=== PATIENT | female | born 1975 | race Caucasian/White ===

== ENCOUNTER 2020-07-18 11:06 | Outpatient (REF) | payer OTHER, SELFPAY ==
[2020-07-18 14:10] LABS: Hematocrit 38.5 % (37-47); Hemoglobin 12.5 g/dl (12.0-16.0); Mean Corpuscular HGB Conc 32.5 g/dl (31.0-35.0); Mean Corpuscular Hemoglobin 28.6 pg (27.0-33.0); Mean Corpuscular Volume 88.1 fL (80-98); Mean Platelet Volume 12.5 fL (9.4-12.3); Platelet Count 222 X10*3/uL (160-400); Red Blood Count 4.37 X10*6/uL (4.20-5.50); Red Cell Distribution Width 12.9 % (11.0-16.0); White Blood Count 7.3 X10*3/uL (4.8-10.8)
[2020-07-18 14:42] LABS: Alanine Aminotransferase 16 U/L (0-31); Alkaline Phosphatase 56 U/L (39-117); Anion Gap 12 (12-20); Aspartate Amino Transferase 17 U/L (5-31); Bilirubin Total 0.4 mg/dL (0.0-1.0); Blood Urea Nitrogen 13 mg/dL (9-16); Calcium 8.6 mg/dL (8.4-10.2); Carbon Dioxide 24 mmol/L (22-29); Chloride 107 mmol/L (96-108); Cholesterol 186 mg/dL; Estimated Glomerular Filt Rate > 60; Glucose Fasting 87 mg/dL (60-99); HDL Cholesterol 40 mg/dL; LDL Cholesterol Calculated 127 mg/dl; Potassium 3.9 mmol/l (3.3-5.1); Sodium 139 mmol/L (135-145); Total Protein 6.9 g/dL (6.5-8.0); Triglycerides 98 mg/dL
[2020-07-18 15:01] LABS: TSH reflex Free T4 1.19 mIU/mL (0.32-4.0)
[2020-07-18 15:05] LABS: Thyroid Stimulating Hormone 1.22 mIU/mL (0.32-4.0)
[2020-07-27 14:47] LABS: Vitamin D 25-OH, D2 <4 ng/mL; Vitamin D 25-OH, D3 46 ng/mL; Vitamin D 25-OH, Total 46 ng/mL (30-100)
== END 2020-07-18 11:07 | disposition home or self-care (01) ==
LOC: HO.HMGCLDS 11:06
PROVIDERS: PCP Internal Medicine; Visit Provider Internal Medicine
DX: E04.2 Nontoxic multinodular goiter (principal)
CPT/HCPCS: 36415; 80053; 80061; 82306; 84443; 85027

== ENCOUNTER 2021-07-29 08:41 | Outpatient (REF) | payer OTHER, SELFPAY ==
[2021-07-29 11:43] LABS: Hemoglobin 13.7 g/dl (12.0-16.0); Red Cell Distribution Width 12.7 % (11.0-16.0)
[2021-07-29 11:45] LABS: Hematocrit 41.7 % (37.0-47.0); Mean Corpuscular HGB Conc 32.9 g/dl (31.0-35.0); Mean Corpuscular Hemoglobin 28.7 pg (27.0-33.0); Mean Corpuscular Volume 87.2 fL (80.0-98.0); Mean Platelet Volume 13.5 fL (9.4-12.3); PLT CLUMP 1; Red Blood Count 4.78 X10*6/uL (4.20-5.50)
[2021-07-29 11:47] LABS: PLT ABN DIST 1
[2021-07-29 12:12] LABS: Platelet Count 150 X10*3/uL (160-400); White Blood Count 7.4 X10*3/uL (4.8-10.8)
[2021-07-29 12:22] LABS: Alanine Aminotransferase 16 U/L (0-31); Albumin Level 4.2 g/dL (3.5-5.0); Alkaline Phosphatase 61 U/L (39-117); Anion Gap 13 (12-20); Aspartate Amino Transferase 19 U/L (5-31); Bilirubin Total 0.4 mg/dL (0.0-1.0); Blood Urea Nitrogen 11 mg/dL (9-16); Calcium 8.9 mg/dL (8.4-10.2); Carbon Dioxide 21 mmol/L (22-29); Chloride 108 mmol/L (96-108); Cholesterol 207 mg/dL; Estimated Glomerular Filt Rate > 60; Glucose Fasting 86 mg/dL (60-99); HDL Cholesterol 41 mg/dL; LDL Cholesterol Calculated 133 mg/dl; Potassium 4.8 mmol/L (3.3-5.1); Sodium 137 mmol/L (135-145); Total Protein 7.7 g/dL (6.5-8.0); Triglycerides 166 mg/dL
[2021-07-29 12:42] LABS: TSH reflex Free T4 1.45 uIU/mL (0.32-4.0); Vitamin D 25-OH Total 31.8 ng/mL (>30)
== END 2021-07-29 08:42 | disposition home or self-care (01) ==
LOC: HO.HMGCLDS 08:41
PROVIDERS: PCP Internal Medicine; Visit Provider Internal Medicine
DX: Z00.00 Encounter for general adult medical examination without abnormal findings (principal)
CPT/HCPCS: 36415; 80053; 80061; 82306; 84443; 85027

== ENCOUNTER 2022-08-04 08:45 | Outpatient (REF) | payer BC, SELFPAY ==
[2022-08-04 11:22] LABS: MANUAL DIFF FLAG NO
[2022-08-04 11:30] LABS: Basophils Absolute Auto 0.1 X10*3/uL (0.0-0.2); Basophils Percent Auto 1.1 % (0-2); Eosinophils Absolute Auto 0.3 X10*3/uL (0.0-0.4); Eosinophils Percent Auto 4.1 % (0-4); Hematocrit 40.9 % (37.0-47.0); Hemoglobin 13.3 g/dl (12.0-16.0); Imm Gran Abs Auto 0.01 X10*3/uL (0.00-0.03); Imm Gran Pct Auto 0.1 % (0.0-0.4); Lymphocytes Absolute Auto 2.4 X10*3/uL (1.2-4.9); Lymphocytes Percent Auto 32.4 % (20-40); Mean Corpuscular HGB Conc 32.5 g/dl (31.0-35.0); Mean Corpuscular Hemoglobin 28.2 pg (27.0-33.0); Mean Corpuscular Volume 86.8 fL (80.0-98.0); Mean Platelet Volume 11.7 fL (9.4-12.3); Monocytes Absolute Auto 0.5 X10*3/uL (0.1-1.2); Monocytes Percent Auto 6.1 % (2-11); Neutrophils Absolute Auto 4.1 x10*3/uL (2.0-8.3); Neutrophils Percent Auto 56.2 % (45-73); Platelet Count 258 X10*3/uL (160-400); Red Blood Count 4.71 X10*6/uL (4.20-5.50); Red Cell Distribution Width 12.7 % (11.0-16.0); White Blood Count 7.4 X10*3/uL (4.8-10.8)
[2022-08-04 11:38] LABS: Appearance Urine Clear; Color Urine Yellow; Glucose Urine UA Negative (Negative); Leukocyte Esterase Urine Negative (Negative); Nitrite Urine Negative (Negative); Specific Gravity - Urine 1.015 (1.005-1.025); UMIC TRIGGER UACC YES; Urine Blood Moderate (2+) (Negative); Urine Ketones Negative (Negative); Urine Protein Negative (Neg-Trace)
[2022-08-04 11:45] LABS: Bacteria Urine None Seen (None Seen); Hyaline Casts Urine 0-2 /LPF (0-2); RBC Urine >20 /HPF (0-2); Squamous Epithelial Cell Urine 0-2 /HPF (0-2); WBC Urine 0-5 /HPF (0-5)
[2022-08-04 12:13] LABS: TSH reflex Free T4 1.27 uIU/mL (0.32-4.0); Vitamin D 25-OH Total 37.6 ng/mL (>30)
[2022-08-04 12:16] LABS: Alanine Aminotransferase 19 U/L (0-31); Albumin Level 4.2 g/dL (3.5-5.0); Alkaline Phosphatase 72 U/L (39-117); Anion Gap 15 (12-20); Aspartate Amino Transferase 15 U/L (5-31); Bilirubin Total 0.4 mg/dL (0.0-1.0); Blood Urea Nitrogen 11 mg/dL (9-16); Calcium 8.8 mg/dL (8.4-10.2); Carbon Dioxide 23 mmol/L (22-29); Chloride 106 mmol/L (96-108); Cholesterol 223 mg/dL; Estimated Glomerular Filt Rate > 60; Glucose Fasting 90 mg/dL (60-99); HDL Cholesterol 37 mg/dL; LDL Cholesterol Calculated 145 mg/dl; Sodium 140 mmol/L (135-145); Total Protein 7.3 g/dL (6.5-8.0); Triglycerides 208 mg/dL
== END 2022-08-04 08:46 | disposition home or self-care (01) ==
LOC: HO.HMGCLDS 08:45
PROVIDERS: PCP Internal Medicine; Visit Provider Internal Medicine
DX: Z00.00 Encounter for general adult medical examination without abnormal findings (principal); Z92.89 Personal history of other medical treatment
CPT/HCPCS: 36415; 80053; 80061; 81001; 82306; 84443; 85025

== ENCOUNTER 2022-08-14 09:03 | Outpatient (REF) | payer BC, SELFPAY ==
[2022-08-14 11:26] LABS: Appearance Urine Clear; Color Urine Yellow; Glucose Urine UA Negative (Negative); Leukocyte Esterase Urine Negative (Negative); Nitrite Urine Negative (Negative); PH 6.5 (5.0-9.0); Specific Gravity - Urine <= 1.005 (1.005-1.025); UMIC TRIGGER UACC YES; Urine Blood Small (1+) (Negative); Urine Ketones Negative (Negative); Urine Protein Negative (Neg-Trace)
[2022-08-14 11:44] LABS: Bacteria Urine None Seen (None Seen); Hyaline Casts Urine 0-2 /LPF (0-2); RBC Urine 0-2 /HPF (0-2); Squamous Epithelial Cell Urine 0-2 /HPF (0-2); WBC Urine 0-5 /HPF (0-5)
== END 2022-08-14 09:04 | disposition home or self-care (01) ==
LOC: HO.HMGCLDS 09:03
PROVIDERS: PCP Internal Medicine; Visit Provider Internal Medicine
DX: Z00.00 Encounter for general adult medical examination without abnormal findings (principal); K21.9 Gastro-esophageal reflux disease without esophagitis; Z92.89 Personal history of other medical treatment
CPT/HCPCS: 81001; 87338

== ENCOUNTER 2022-08-20 09:21 | Outpatient (REF) | payer BC, SELFPAY ==
[2022-08-20 11:19] LABS: Urine Cytology See Pathology rpt
[2022-08-20 11:23] LABS: Appearance Urine Clear; Color Urine Yellow; Glucose Urine UA Negative (Negative); Leukocyte Esterase Urine Trace (Negative); Nitrite Urine Negative (Negative); UMIC TRIGGER UACC YES; Urine Blood Moderate (2+) (Negative); Urine Ketones Negative (Negative); Urine Protein Negative (Neg-Trace)
[2022-08-20 11:25] LABS: Bacteria Urine None Seen (None Seen); Hyaline Casts Urine 0-2 /LPF (0-2); Squamous Epithelial Cell Urine 0-2 /HPF (0-2); WBC Urine 0-5 /HPF (0-5)
== END 2022-08-20 09:22 | disposition home or self-care (01) ==
LOC: HO.HMGCLDS 09:21
PROVIDERS: PCP Internal Medicine; Visit Provider Internal Medicine
DX: R31.29 Other microscopic hematuria (principal)
CPT/HCPCS: 81001; 88112

== ENCOUNTER 2022-09-03 15:25 | Outpatient (REF) | payer BC, SELFPAY ==
--- NOTE | ~2022-09-03 | US_ITS ---
EXAMINATION: US RETROPERITONEAL LIMITED (RENAL ONLY) CLINICAL INFORMATION: Microscopic hematuria. COMPARISON: None TECHNIQUE: Routine grayscale imaging of kidneys is performed. FINDINGS: RIGHT KIDNEY: 11.7 x 4.0 x 4.0 cm (SAG x AP x TRV). The kidney is normal in size, contour, and echogenicity. Renal cortical thickness is normal. No calculi or focal parenchymal lesions. No hydronephrosis. LEFT KIDNEY: 10.5 x 6.3 x 4.3 cm (SAG x AP x TRV). The kidney is normal in size, contour, and echogenicity. Renal cortical thickness is normal. No calculi or focal parenchymal lesions. No hydronephrosis. US/US renal BI IMPRESSION: Unremarkable renal ultrasound.
== END 2022-09-03 15:26 | disposition home or self-care (01) ==
LOC: HO.HMGCX 15:25
PROVIDERS: PCP Internal Medicine; Visit Provider Internal Medicine
DX: R31.29 Other microscopic hematuria (principal)
CPT/HCPCS: 76775

== ENCOUNTER → 2022-12-28 14:57 | Outpatient (BNVA) | payer BC, SELFPAY | PROVIDERS: PCP Internal Medicine; Visit Provider Physician Assistant | DX: Z13.89 Encounter for screening for other disorder (principal) ==

== ENCOUNTER 2023-02-12 07:35 | Outpatient (REF) | payer BC, SELFPAY ==
[2023-02-12 11:07] LABS: MANUAL DIFF FLAG NO
[2023-02-12 11:12] LABS: Basophils Absolute Auto 0.1 X10*3/uL (0.0-0.2); Basophils Percent Auto 1.1 % (0-2); Eosinophils Absolute Auto 0.2 X10*3/uL (0.0-0.4); Eosinophils Percent Auto 3.3 % (0-4); Hematocrit 39.8 % (37.0-47.0); Imm Gran Abs Auto 0.01 X10*3/uL (0.00-0.03); Imm Gran Pct Auto 0.2 % (0.0-0.4); Lymphocytes Absolute Auto 2.8 X10*3/uL (1.2-4.9); Lymphocytes Percent Auto 43.9 % (20-40); Mean Corpuscular HGB Conc 32.7 g/dl (31.0-35.0); Mean Corpuscular Hemoglobin 28.3 pg (27.0-33.0); Mean Corpuscular Volume 86.7 fL (80.0-98.0); Mean Platelet Volume 12.7 fL (9.4-12.3); Monocytes Absolute Auto 0.4 X10*3/uL (0.1-1.2); Monocytes Percent Auto 6.1 % (2-11); Neutrophils Absolute Auto 2.9 x10*3/uL (2.0-8.3); Neutrophils Percent Auto 45.4 % (45-73); Platelet Count 246 X10*3/uL (160-400); Red Blood Count 4.59 X10*6/uL (4.20-5.50); Red Cell Distribution Width 13.1 % (11.0-16.0); White Blood Count 6.4 X10*3/uL (4.8-10.8)
[2023-02-12 11:28] LABS: Cholesterol 214 mg/dL; HDL Cholesterol 37 mg/dL; LDL Cholesterol Calculated 141 mg/dl; Triglycerides 182 mg/dL
== END 2023-02-12 07:36 | disposition home or self-care (01) ==
LOC: HO.HMGCLDS 07:35
PROVIDERS: PCP Internal Medicine; Visit Provider Internal Medicine
DX: E78.5 Hyperlipidemia, unspecified (principal)
CPT/HCPCS: 36415; 80061; 85025

== ENCOUNTER 2023-08-08 09:17 | Day surgery (SDC) | payer BC, SELFPAY ==
[2023-08-08 09:46] VITALS: BP 141/84; PULSE 106; RESP 20; TEMP 37.1; O2SAT 100; BMI 28.3
[2023-08-08] MEDS: Lactated Ringers 1,000 ML 50 ML IVCONT (09:49)
--- NOTE | 2023-08-08 10:08 | P.CONAN_ITS ---
[facility] Active Problems Active Problems: All Active Problems (Updated 08/05/23 @ 09:00 by Verito Sanchez RN) Encounter for colonoscopy in patient with family history of colon polyps (Acute) Encounter for screening colonoscopy (Acute) Microscopic hematuria (Acute) Hyperlipidemia (Acute) Chest pain (Acute) Hx of screening mammography (Acute) GERD (gastroesophageal reflux disease) (Acute) Thyroid nodule (Acute) Normal Pap smear (Acute) Annual physical exam (Acute) Past Medical History Medical History (Updated 08/05/23 @ 09:00 by Verito Sanchez RN) GERD (gastroesophageal reflux disease) Thyroid nodule Normal Pap smear Annual physical exam Family History Family History Father HTN (hypertension) Mother HTN (hypertension) Brother Colon polyp Family history of problems with anesthesia: No Surgical History Surgical History No pertinent past surgical history History of Problems with Anesthesia: No Social History Social History Housing: House Patient Tobacco Use Status: Never used Tobacco e-Cigarette/Vaping Use: Never Used Advance Directives: No Advance Directives Information Provided: Yes Current occupational status: employed Cognitive needs: No Hearing needs: No Vision needs: No Meds Allergies Allergy/AdvReac Type Severity Reaction Status Date / Time No Known Allergies Allergy Verified 12/28/22 14:59 Active Medications: Current Medications Lactated Ringer's (Lr) 1,000 mls @ 50 mls/hr IVCONT .Q20H [facility] Last Admin: 08/08/23 09:49 Dose: 50 mls/hr Home Medications Medication Instructions Recorded Confirmed Last Taken Type ascorbate calcium (vitamin C) 500 500 mg PO DAILY 07/18/20 08/04/22 Unknown History mg tablet cholecalciferol (vitamin D3) 25 25 mcg PO DAILY 07/18/20 08/04/22 Unknown History mcg (1,000 unit) capsule ibuprofen 200 mg capsule 200 mg PO Q6H PRN 07/18/20 08/04/22 Unknown History Exam Exam Date and Time: August 08, 2023 1008 Height,Weight and Vital Signs: Height 5 ft 4 in Weight 74.843 kg Last Vital Signs Temp 98.8 F 11/13/23 09:46 Pulse 106 H 08/08/23 09:46 Resp 20 08/08/23 09:46 BP 141/84 H 08/08/23 09:46 Pulse Ox 100 08/08/23 09:46 O2 Del Method Room Air 08/08/23 09:46 Airway Mallampati Class: II TM Dist: >3cm Neck ROM: Full Heart: rrr Lungs: cts Assessment and Plan Assessment Anesthesia Assessment: Anesthesia Plan Discussed and Chart Reviewed Final Anesthetic Review Family History of Problems with Anesthesia: No History of Problems with Anesthesia: No NPO: Yes ASA Class: II Final Preanesthetic Review: No Changes in Pt Med Stat, Meds/Allgs Chart Reviewed and Consent Obtained/Reviewed Patient Risk: Intermediate Procedure Risk: Intermediate Anesthetic Plan Anesthetic Plan: MAC: Disposition: Standard PACU
--- NOTE | 2023-08-08 10:24 | MHC.SHP ---
Pre-Procedural Eval Section A Date of Service: 08/08/23 The patient is an INPATIENT: No The History & Physical has been completed within 30 days and I have reviewed it.: No Section B Chief Complaint: Colon cancer screening, FH of colon polyps Relevant Family History (Specify if Yes): Yes Relevant Social History: None Present Medications: see Short Stay Collaborative assessment Medical History: Significant History (Thyroid nodule) History of Previous Operations: No relevant previous surgery Allergies: Allergies Allergy/AdvReac Type Severity Reaction Status Date / Time No Known Allergies Allergy Verified 12/28/22 14:59 Review of Systems Sugical H&P ROS: Negative: Constitution, Cardiovascular, Respiratory and Gastrointestinal Exam Surgical H&P Exam: Normal: Heart, Normal: Lungs, Normal: Extremities and Normal: Abdomen Plan Diagnosis/Plan: Unchanged I have reviewed the history and physical and performed a pertinent physical examination on my patient. No changes have occurred unless specified. Time Spent With Patient Time: Total time managing care of this patient today ____ minutes.
[2023-08-08 10:44] LABS: UPreg QC Valid YES; Urine Pregnancy NEGATIVE (NEGATIVE)
--- NOTE | 2023-08-08 10:59 | W.PM.OPN ---
Operative Note Operative Note Date of Service: 08/08/23 Narrative: COLONOSCOPY TILL CECUM Pre-op diagnosis: Colon cancer screening, family history of colon polyps (brother at age 48 yrs) Post-op diagnosis:? Diverticulosis Endoscopist:? Lewis Swenson MD Anesthesia:?MAC Consent: Indications for the procedure and potential complications of bleeding, perforation, reaction to medications and missed diagnosis were discussed with the patient and informed consent was obtained. Instrument: Olympus PCF H 190 L variable stiffness pediatric colonoscope Monitoring: Vital signs and clinical assessment, intermittent blood pressure monitoring, continuous EKG monitoring, Pulse oximetry and Carbon Dioxide monitoring were done throughout the procedure. Please see anesthesia flowsheet. Colon withdrawl time was 10 minutes. Procedure: The patient was placed in the left lateral decubitis position and pre-procedure medications were administered. After a digital rectal examination of the ano-rectum, the video colonoscope was inserted into the rectum and advanced through the colon to the cecum. The colonoscope was slowly withdrawn in a retrograde panoramic fashion and the colon mucosa was carefully examined including a retroflexed view of the rectum. Findings and interventions are described below. Procedure Difficulty: Without difficulty - colon was long and tortuous and there was some loop formation Findings: Terminal Ileum: Not evaluated Cecum: Normal Ascending Colon: Normal Transverse Colon: Normal Descending Colon: Normal Sigmoid Colon: Moderate diverticulosis Rectum: Normal Ano-rectum: Normal Colon preparation: Excellent Impression and Post Procedure Diagnosis: Colonoscopy Findings: No polyps were detected Moderate diverticulosis seen in the sigmoid colon Plan: Patient has an appointment on 08/23/23 in the GI Clinic with PAT Garcia. Repeat Colonoscopy in 5 years (due to positive family hx). OK to revert to colonoscopy every 10 years if next colonoscopy is negative Diverticulosis handout was given in the discharge area
[2023-08-08 11:35] VITALS: BP 107/71; PULSE 97; RESP 16; TEMP 36.6; O2SAT 95
[2023-08-08 11:50] VITALS: BP 125/68; PULSE 79; RESP 17; TEMP 36.7; O2SAT 96
== END 2023-08-08 12:42 | disposition home or self-care (01) ==
PROVIDERS: Anesthesiology; PCP Internal Medicine; Visit Provider Internal Medicine Gastroenterology
PROC: 0DJD8ZZ Inspection of Lower Intestinal Tract, Via Natural or Artificial Opening Endoscopic (ICD-10-PCS; CPT 45378; principal; 2023-08-08 11:00)
DX: Z12.11 Encounter for screening for malignant neoplasm of colon (principal); K57.30 Diverticulosis of large intestine without perforation or abscess without bleeding; K56.2 Volvulus; Z83.719 Family history of colon polyps, unspecified; E78.5 Hyperlipidemia, unspecified; K21.9 Gastro-esophageal reflux disease without esophagitis; Z79.899 Other long term (current) drug therapy
CPT/HCPCS: 45378; 81025; J2704

== ENCOUNTER → 2023-08-08 09:17 | Outpatient (BNV) | payer BC, SELFPAY | PROVIDERS: PCP Internal Medicine; Visit Provider Internal Medicine Gastroenterology | DX: Z12.11 Encounter for screening for malignant neoplasm of colon (principal); Z86.010 Personal history of colon polyps; K57.30 Diverticulosis of large intestine without perforation or abscess without bleeding | CPT/HCPCS: 45378 ==

== ENCOUNTER 2023-10-05 08:23 | Outpatient (AMB) | payer BC, SELFPAY ==
[2023-10-05 08:34] VITALS: BP 126/74; PULSE 99; O2SAT 100; BMI 29.2
--- NOTE | 2023-10-05 08:34 | A.OFFPC_ITS ---
Vital Signs 10/05/23 08:34 Height 5 ft 4 in Weight 170 lb BMI 29.2 BP 126/74 Blood Pressure Location Lt brachial Position Sitting Pulse 99 Pulse Source Pulse Oximeter Pulse Oximetry (%) 100 Oxygen Delivery Method Room Air Intake Visit Reasons: Annual PE Intake Note: Pt is here today for PE. 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 Allergies No Known Allergies Allergy (Verified 10/05/23 08:36) Medication List - Last Reconciled 10/05/23 by Alaina Kennedy MD ascorbate calcium (vitamin C) 500 mg PO DAILY cholecalciferol (vitamin D3) 25 mcg PO DAILY ibuprofen 200 mg PO Q6H PRN meclizine 25 mg PO TID PRN omeprazole 20 mg PO DAILY Tobacco use date assessed: 10/05/23 Dental Screening Dental Screen Date: 10/05/23 Did you have a dental visit in the last 12 months?: Yes Did you have a dental problem in the last 6 months where you did not have access to dental care?: No Was dental information given to patient?: Patient has dentist HPI Annual PE HPI Details PATIENT PRESENTS FOR PE. [facility] Medical History GERD (gastroesophageal reflux disease) Thyroid nodule Normal Pap smear Annual physical exam Surgical History (Updated 10/05/23 @ 09:17 by Alaina Kennedy MD) No pertinent past surgical history Family History Father HTN (hypertension) Mother HTN (hypertension) Brother Colon polyp Social History Housing: House Patient Tobacco Use Status: Never used Tobacco e-Cigarette/Vaping Use: Never Used Current occupational status: employed Cognitive needs: No Hearing needs: No Vision needs: No Questionnaire PHQ-9 Over the last 2 weeks, how often have you been bothered by any of the following problems? 1. Little interest or pleasure in doing things: not at all 2. Feeling down, depressed, or hopeless: not at all 3. Trouble falling or staying asleep, or sleeping too much: not at all 4. Feeling tired or having little energy: not at all 5. Poor appetite or overeating: not at all 6. Feeling bad about yourself - or that you are a failure or have let yourself or your family down: not at all 7. Trouble concentrating on things, such as reading the newspaper or watching television: not at all 8. Moving or speaking so slowly that other people could have noticed. Or the opposite - being so fidgety or restless that you have been moving around a lot more than usual: not at all 9. Thoughts that you would be better off or of hurting yourself in some way: not at all Total score: 0 Depression Screening Interpretation: Negative Depression Screening Done: Yes Source: Developed by Drs. Moy Chacon, Debi Shahid, Antonino Rosas and colleagues, with an educational pollo from [employer]. Thrive Questionnaire Date Thrive assessed: 10/05/23 I am a: Patient What is your living situation today?: I have a steady place to live Within the past 12 months, did the food you bought not last and you didn't have the money to get more?: Never true Within the past 12 months, did you worry whether your food would run out before you got money to buy more?: Never true Do you have trouble paying for medicines?: No Do you have trouble getting transportation to medical appointments?: No Do you have trouble paying your heating and electricity bill?: No Do you have trouble taking care of your child, family member or friend?: No Do you have trouble with day-to-day activities such as bathing, preparing meals, shopping, managing finances, etc.?: No Are you currently unemployed and looking for a job?: No Are you interested in more education?: No Please select the resources that you would like help with: Job search/training AUDIT C Alcohol Use Questionnaire (AUDIT-C) 1. How often do you have a drink containing alcohol?: Monthly or less 2. How many drinks containing alcohol do you have on a typical day when you are drinking?: 1 or 2 3. How often do you have six or more drinks on one occasion?: Never Total Score: 1 LINA-7 AMB Questionnaire LINA-7 Date LINA - 7 assessed: 10/05/23 Feeling nervous, anxious, or on edge: 1 = Several days Not being able to stop or control worryin = Not at all Worrying too much about different things: 1 = Several days Trouble relaxin = Not at all Being so restless that it is hard to sit still: 0 = Not at all Becoming easily annoyed or irritable: 0 = Not at all Feeling afraid as if something awful might happen: 1 = Several days Total LINA-7 score (0-4 normal; 5-9 mild; 10-14 moderate; 15-21 severe): 3 Source: Developed by Drs. Moy Chacon, Debi Shahid, Antonino Rosas and colleagues, with an educational pollo from [employer]. Review of Systems Const All systems reviewed & are unremarkable except as noted in HPI and below Reports no additional complaints Eyes Reports no additional complaints ENT Reports no additional complaints Card Reports no additional complaints Resp Reports no additional complaints GI Reports no additional complaints Reports no additional complaints Physical exam (Primary Care) Vital Signs: Last Vital Signs Pulse 99 10/05/23 08:34 BP 126/74 10/05/23 08:34 Pulse Ox 100 10/05/23 08:34 Oxygen Delivery Method Room Air 10/05/23 08:34 BMI result Body Mass Index 29.2 Tobacco/Smoking Status: Tobacco use Status Tobacco use date assessed 10/05/23 10/05/23 08:39 Patient Tobacco Use Status Never used Tobacco 10/05/23 08:39 e-Cigarette/Vaping Use Never Used 10/05/23 08:39 PHQ-9: PHQ-9 Score PHQ-9: Total score 0 10/05/23 09:15 Depression Screening Interpretation: Negative Thrive Assessment: Date of Thrive Assessment Date Thrive assessed 10/05/23 10/05/23 08:39 Const General: no acute distress HENMT Head: Yes normal to inspection Ears: hearing grossly normal bilaterally Face and sinus: Yes normal facial exam Mouth: Normal oral and palatal mucosa present Throat: Yes posterior oropharynx normal Eyes General: appearance normal, both eyes and all related structures Neck Neck: Yes no lymphadenopathy and Yes supple Resp Effort & Inspection: normal respiratory effort Auscultation: clear to auscultation bilaterally Cardio Rhythm: regular rhythm Heart sounds: S1 normal heart sound present and S2 normal heart sound present GI Inspection: Yes normal to inspection Palpation (GI): Soft to palpation Percussion: Yes normal to percussion Auscultation: normal bowel sounds Assessment and Plan Assessment & Plan (1) Thyroid nodule: Comment: f/u endo Dr. Lane, 2 nodules bx negative 2013, Code(s): E04.1 - Nontoxic single thyroid nodule Plan: Obtain a 3 year follow-up thyroid ultrasound (2) Annual physical exam: Code(s): Z00.00 - Encounter for general adult medical examination without abnormal findings Plan: Well-balanced diet regular exercise discussed with the patient she is up-to-date with the Pap smear by photography coordinator and mammogram. (3) Hyperlipidemia: Code(s): E78.5 - Hyperlipidemia, unspecified Plan: Low-cholesterol diet discussed with the patient check lipid profile today (4) Microscopic hematuria: Comment: Renal ultrasound negative 08/17 Code(s): R31.29 - Other microscopic hematuria Plan: Check urinalysis today if positive for microscopic hematuria CT of the abdomen pelvis will be obtained and patient will be referred to urology (5) Hx of colonoscopy: Comment: normal 2022 Code(s): Z98.890 - Other specified postprocedural states (6) Hx of mammogram: Comment: [facility] 2022 Code(s): Z92.89 - Personal history of other medical treatment (7) Normal Pap smear: Comment: follow-up with photography coordinator last Pap 2020 Orders: Orders Comprehensive [place]. Panel Fast Today E04.1 - Nontoxic single thyroid nodule, E78.5 - Hyperlipidemia, unspecified, Z00.00 - Encounter for general adult medical examination without abnormal findings Complete Blood Count Auto Diff Today E04.1 - Nontoxic single thyroid nodule, E78.5 - Hyperlipidemia, unspecified, Z00.00 - Encounter for general adult medical examination without abnormal findings TSH reflex Free T4 Today E04.1 - Nontoxic single thyroid nodule, E78.5 - Hyperlipidemia, unspecified, Z00.00 - Encounter for general adult medical examination without abnormal findings UA w Microscopic Today R31.29 - Other microscopic hematuria US thyroid Today E04.1 - Nontoxic single thyroid nodule, E78.5 - Hyperlipidemia, unspecified, Z00.00 - Encounter for general adult medical examination without abnormal findings Lipid Panel Today E04.1 - Nontoxic single thyroid nodule, E78.5 - Hyperlipidemia, unspecified, Z00.00 - Encounter for general adult medical examination without abnormal findings Vitamin D 25-OH Total Today E04.1 - Nontoxic single thyroid nodule, E78.5 - Hyperlipidemia, unspecified, Z00.00 - Encounter for general adult medical examination without abnormal findings Coding Level of Care Code Est Pt Prev Care 40-64y(88860) Diagnoses Thyroid nodule E04.1 Annual physical exam Z00.00 Hyperlipidemia E78.5 Microscopic hematuria R31.29 Hx of colonoscopy Z98.890 Hx of mammogram Z92.89 Normal Pap smear Z12.4
== END 2023-10-05 09:20 | disposition home or self-care (01) ==
PROVIDERS: PCP Internal Medicine; Visit Provider Internal Medicine
DX: E04.1 Nontoxic single thyroid nodule (principal); Z00.00 Encounter for general adult medical examination without abnormal findings; E78.5 Hyperlipidemia, unspecified; R31.29 Other microscopic hematuria; Z98.890 Other specified postprocedural states; Z92.89 Personal history of other medical treatment; Z12.4 Encounter for screening for malignant neoplasm of cervix
CPT/HCPCS: 99396

== ENCOUNTER 2023-10-05 09:12 | Outpatient (REF) | payer BC, SELFPAY ==
[2023-10-05 11:34] LABS: MANUAL DIFF FLAG NO
[2023-10-05 11:36] LABS: Appearance Urine Clear; Color Urine Yellow; Glucose Urine UA Negative (Negative); Leukocyte Esterase Urine Trace (Negative); Nitrite Urine Negative (Negative); UMIC TRIGGER UA YES; Urine Blood Moderate (2+) (Negative); Urine Ketones Negative (Negative); Urine Protein Negative (Neg-Trace)
[2023-10-05 11:43] LABS: Basophils Absolute Auto 0.1 X10*3/uL (0.0-0.2); Basophils Percent Auto 0.8 % (0-2); Eosinophils Absolute Auto 0.3 X10*3/uL (0.0-0.4); Eosinophils Percent Auto 2.8 % (0-4); Hematocrit 40.7 % (37.0-47.0); Hemoglobin 13.1 g/dl (12.0-16.0); Imm Gran Abs Auto 0.02 X10*3/uL (0.00-0.03); Imm Gran Pct Auto 0.2 % (0.0-0.4); Lymphocytes Absolute Auto 3.8 X10*3/uL (1.2-4.9); Lymphocytes Percent Auto 38.8 % (20-40); Mean Corpuscular HGB Conc 32.2 g/dl (31.0-35.0); Mean Corpuscular Hemoglobin 28.2 pg (27.0-33.0); Mean Corpuscular Volume 87.5 fL (80.0-98.0); Mean Platelet Volume 12.2 fL (9.4-12.3); Monocytes Absolute Auto 0.6 X10*3/uL (0.1-1.2); Monocytes Percent Auto 5.9 % (2-11); Neutrophils Percent Auto 51.5 % (45-73); Platelet Count 287 X10*3/uL (160-400); Red Blood Count 4.65 X10*6/uL (4.20-5.50); Red Cell Distribution Width 13.2 % (11.0-16.0); White Blood Count 9.7 X10*3/uL (4.8-10.8)
[2023-10-05 12:12] LABS: Bacteria Urine 2+ (None Seen); Hyaline Casts Urine 0-2 /LPF (0-2); WBC Urine 0-5 /HPF (0-5)
[2023-10-05 12:19] LABS: Alanine Aminotransferase 18 U/L (0-31); Albumin Level 4.1 g/dL (3.5-5.0); Alkaline Phosphatase 65 U/L (39-117); Anion Gap 12 (12-20); Aspartate Amino Transferase 15 U/L (5-31); Bilirubin Total 0.4 mg/dL (0.0-1.0); Blood Urea Nitrogen 11 mg/dL (9-16); Carbon Dioxide 23 mmol/L (22-29); Chloride 108 mmol/L (96-108); Cholesterol 219 mg/dL (<200); Estimated Glomerular Filt Rate > 60; Glucose Fasting 90 mg/dL (60-99); HDL Cholesterol 39 mg/dL (>40); LDL Cholesterol Calculated 138 mg/dL (<100); Potassium 3.7 mmol/L (3.3-5.1); Sodium 139 mmol/L (135-145); Total Protein 7.5 g/dL (6.5-8.0); Triglycerides 211 mg/dL (<150)
[2023-10-05 12:20] LABS: TSH reflex Free T4 1.72 uIU/mL (0.32-4.0); Vitamin D 25-OH Total 66.8 ng/mL (>30)
== END 2023-10-05 09:13 | disposition home or self-care (01) ==
LOC: HO.HMGCLDS 09:12
PROVIDERS: PCP Internal Medicine; Visit Provider Internal Medicine
DX: Z00.00 Encounter for general adult medical examination without abnormal findings (principal); E04.1 Nontoxic single thyroid nodule; R31.29 Other microscopic hematuria; E78.5 Hyperlipidemia, unspecified
CPT/HCPCS: 36415; 80053; 80061; 81001; 82306; 84443; 85025

== ENCOUNTER 2023-12-06 16:02 | Outpatient (REF) | payer BC, SELFPAY ==
--- NOTE | ~2023-12-06 | CT_ITS ---
EXAMINATION: CT UROGRAM WITHOUT AND WITH CONTRAST CLINICAL INFORMATION: Reason for Exam R31.29 - Other microscopic hematuria COMPARISON: 09/03/2022 TECHNIQUE: Helical scanning was performed with collimation through the abdomen and pelvis precontrast. Helical scanning was then repeated with submillimeter collimation through the abdomen and pelvis in the pyelogram phase with use of 100 mL of Omnipaque 300 intravenous contrast. Sagittal and coronal 2-D reconstructions were obtained. Multiple additional 3-D volume rendered images were obtained of the kidneys and collecting systems on an independent workstation under concurrent supervision. This CT examination was performed using dose optimization techniques as appropriate, variously including the following: *Automated exposure control *Adjustment of mA and/or kV according to patient size (this includes techniques or standardized protocols for targeted exams where dose is matched to indication/reason for exam; i.e. extremities or head) *Use of iterative reconstruction technique DLP: 699.55 mGy-cm FINDINGS: LUNG BASES: Unremarkable. ABDOMINAL AND PELVIC WALL: Unremarkable. LIVER AND BILIARY TREE: Unremarkable. GALLBLADDER: Unremarkable. PANCREAS: Unremarkable. SPLEEN: Partially evaluated 2.3 x 1.7 cm cystic structure arising from the spleen (9:48) with internal calcifications. ADRENAL GLANDS: Unremarkable. KIDNEYS AND URETERS: The kidneys are normal in size, shape, and attenuation. No hydronephrosis, hydroureter, or calculi seen. No perinephric stranding. No obvious mass lesion or filling defect is seen in the collecting systems or ureters. GASTROINTESTINAL TRACT: Unremarkable. VASCULAR: Unremarkable. LYMPH NODES/PERITONEUM: No lymphadenopathy. FREE FLUID: None. BLADDER: Unremarkable. PELVIC VISCERA: Left adnexal 2.4 x 1.4 cm cyst. OSSEOUS STRUCTURES: Unremarkable. CT/CT abdomen pelvis wo/w IV con IMPRESSION: * No hydronephrosis or nephrolithiasis. * Partially evaluated 2.3 cm cystic structure arising from the spleen with internal calcifications. Recommend further evaluation with CT or MRI. * Left adnexal 2.4 cm cyst. Recommend pelvic ultrasound for further evaluation.
[2023-12-06] MEDS: iohexoL 350 MG/ML 100 ML INFUS..BTL 85 ML IV (16:36)
== END 2023-12-06 16:03 | disposition home or self-care (01) ==
LOC: HO.CT 16:02
PROVIDERS: PCP Internal Medicine; Visit Provider Internal Medicine
DX: R31.29 Other microscopic hematuria (principal)
CPT/HCPCS: 74178; Q9967

== ENCOUNTER 2023-12-09 15:28 | Outpatient (AMB) | payer BC, SELFPAY ==
--- NOTE | 2023-12-09 15:33 | A.OFFVIS_ITS ---
Intake Intake Visit Reasons: Other microscopic hematuria Intake Note: New Patient presents for initial visit for micro hematuria Urology Medications: none Blood Thinner: none [employer] Consultant Required: No Accompanied by: Self / Same As Patient Allergies No Known Allergies Allergy (Verified 12/09/23 16:07) Medication List - Last Reconciled 12/09/23 by TYRON Wayne cholecalciferol (vitamin D3) 25 mcg PO DAILY ibuprofen 200 mg PO Q6H PRN HPI HPI Comments History of Present Illness Details Aspen is a very pleasant 48-year-old patient of Dr. Kennedy. She has a past medical history of GERD and a thyroid nodule. She presents to the office today as a new patient for microscopic hematuria. In discussion with the patient today she reports having followed up with her PCP for her annual visit at which time she was noted to have microscopic hematuria and be recommendations were made for urology referral for further assessment evaluation. In review of patient's chart it appears CT of the abdomen and pelvis was ordered and performed. These results were reviewed with the patient today no hydronephrosis or renal calculi noted. Discussed continuing to follow up with front desk associate regarding adnexal 2.4 cm left cyst that is recommending pelvic ultrasound for further assessment evaluation. Discussed following up with PCP regarding 2.3 cm cystic structure arising from spleen with calcifications. She reports noting microscopic hematuria was found in 2019 however then subsided without any intervention. Discussed at length potential causes of microscopic hematuria. She denies any bothersome urinary issues or concerns. She denies urinary urgency, urinary frequency, incontinence, nocturia, hematuria, dysuria, foul smelling urine, changes to urinary stream, flank pain, fever, and or chills. She is happy with her current voiding parameters. In office urinalysis results reviewed with the patient today. Discussed further workup of microscopic hematuria versus surveillance monitoring. She has no history of nicotine dependence and or known workplace chemical exposure. She otherwise offers no other issues or concerns at this time. [facility] Medical History GERD (gastroesophageal reflux disease) Thyroid nodule Normal Pap smear Annual physical exam Surgical History No pertinent past surgical history Family History Father HTN (hypertension) Mother HTN (hypertension) Brother Colon polyp Social History Housing: House Patient Tobacco Use Status: Never used Tobacco e-Cigarette/Vaping Use: Never Used Current occupational status: employed Cognitive needs: No Hearing needs: No Vision needs: No Review of Systems Const All systems reviewed & are unremarkable except as noted in HPI and below Results AMB Urinalysis, Automated UA Leukoctes 0 Ganga/uL Last Edit by [employer] Monetsharlene on 12/09/23 16:06 UA Nitrite Negative Last Edit by Jajahsharlene on 12/09/23 16:06 UA Urobilinogen 0.2 mg/dL Last Edit by [employer] on 12/09/23 16:06 UA Protein 0 mg/dL Last Edit by Jajahsharlene on 12/09/23 16:06 UA pH 7.0 Last Edit by [employer] on 12/09/23 16:06 UA Blood 200 Kenneth/uL Last Edit by Jajahsharlene on 12/09/23 16:06 UA Specific [place] 1.010 Last Edit by Jajahsharlene on 12/09/23 16:06 UA Ketone Negative Last Edit by [employer] on 12/09/23 16:06 UA Bilirubin 0 mg/dL Last Edit by [employer] on 12/09/23 16:06 UA Glucose 0 mg/dL Last Edit by Jajahsharlene on 12/09/23 16:06 Results Reviewed Results Reviewed: Laboratory Last Values Urine pH (Auto) 7.0 12/09/23 15:36 Specific [place] (Auto) 1.010 12/09/23 15:36 Urine Protein (Auto) 0 mg/dL 12/09/23 15:36 Glucose (UA)(Auto) 0 mg/dL 12/09/23 15:36 Urine Ketones (Auto) Negative 12/09/23 15:36 Urine Blood (Auto) 200 Kenneth/uL 12/09/23 15:36 Urine Nitrite (Auto) Negative 12/09/23 15:36 Urine Bilirubin (Auto) 0 mg/dL 12/09/23 15:36 Urine Urobilinogen (Auto) 0.2 mg/dL 12/09/23 15:36 Leukocyte Esterase (Auto) 0 Ganga/uL 12/09/23 15:36 Date of Service: 12/06/23 EXAMINATION: CT UROGRAM WITHOUT AND WITH CONTRAST FINDINGS: LUNG BASES: Unremarkable. ABDOMINAL AND PELVIC WALL: Unremarkable. LIVER AND BILIARY TREE: Unremarkable. GALLBLADDER: Unremarkable. PANCREAS: Unremarkable. SPLEEN: Partially evaluated 2.3 x 1.7 cm cystic structure arising from the spleen (9:48) with internal calcifications. ADRENAL GLANDS: Unremarkable. KIDNEYS AND URETERS: The kidneys are normal in size, shape, and attenuation. No hydronephrosis, hydroureter, or calculi seen. No perinephric stranding. No obvious mass lesion or filling defect is seen in the collecting systems or ureters. GASTROINTESTINAL TRACT: Unremarkable. VASCULAR: Unremarkable. LYMPH NODES/PERITONEUM: No lymphadenopathy. FREE FLUID: None. BLADDER: Unremarkable. PELVIC VISCERA: Left adnexal 2.4 x 1.4 cm cyst. OSSEOUS STRUCTURES: Unremarkable. IMPRESSION: * No hydronephrosis or nephrolithiasis. * Partially evaluated 2.3 cm cystic structure arising from the spleen with internal calcifications. Recommend further evaluation with CT or MRI. * Left adnexal 2.4 cm cyst. Recommend pelvic ultrasound for further evaluation. Assessment & Plan Assessment & Plan (1) Microscopic hematuria: Comment: Renal ultrasound negative 08/17 Code(s): R31.29 - Other microscopic hematuria Plan In office urinalysis results reviewed with the patient today; as noted above; will send for urine cytology. Recent CT results reviewed with the patient today; as noted above. Discussed at length potential causes of microscopic hematuria discussed further microscopic hematuria with in office cystoscopy and cytology given CT urogram has been ordered and performed versus surveillance monitoring; risks and benefits of these interventions were discussed at length. Discussed, educated, and stressed the importance of drinking plenty of water daily. Discussed bladder triggers/irritants. Follow-up in 6 months; or sooner with any issues, concerns, and or questions. Orders: Orders AMB Urinalysis Automated 12/09/23 Z13.9 - Encounter for screening, unspecified Urine Cytology 12/09/23 R31.29 - Other microscopic hematuria Patient Instructions: The patient had an opportunity to ask questions regarding the treatment plan. All questions were answered. Physical exam, labs, and imaging were discussed and reviewed in detail. As well as risks, benefits, and discussion of treatment choices. No major barriers to understanding were identified. The patient expressed understanding and agreement with the above treatment plan. The patient was made aware they should contact our office by phone for worsening of their current condition, the appearance of new symptoms, or with any questions or concerns. Compliance is encouraged with any medications and follow up testing that is ordered. It is a privilege to be allowed the opportunity to participate in? your urological care.? Again, if you have any questions or concerns If you have any questions or concerns please do not hesitate to contact me. The office is [phone]. This note is constructed using voice recognition software. While every effort has been made to ensure accuracy emergency telecommunications dispatcher errors may have been included. Yours sincerely, TYRON Wayne Coding Level of Care Code New Pt Level 3 (26123) Diagnoses Microscopic hematuria R31.29
== END 2023-12-09 16:11 | disposition home or self-care (01) ==
PROVIDERS: PCP Internal Medicine; Visit Provider Nurse Practitioner Family
DX: R31.29 Other microscopic hematuria (principal)
CPT/HCPCS: 99203

== ENCOUNTER 2023-12-09 15:28 | Outpatient (REF) | payer BC, SELFPAY ==
[2023-12-09 16:53] LABS: Urine Cytology See Pathology rpt
== END 2023-12-09 15:29 | disposition home or self-care (01) ==
LOC: HO.LNP 15:28
PROVIDERS: PCP Internal Medicine; Visit Provider Nurse Practitioner Family
DX: R31.29 Other microscopic hematuria (principal)
CPT/HCPCS: 81003; 88112

== ENCOUNTER 2023-12-30 14:26 | Outpatient (REF) | payer BC, SELFPAY ==
--- NOTE | ~2023-12-30 | US_ITS ---
EXAMINATION: US PELVIS CLINICAL INFORMATION: Ovarian cyst. COMPARISON: CT abdomen and pelvis 12/06/2023: Left adnexal 2.4 cm cyst. Recommend pelvic ultrasound for further evaluation. TECHNIQUE: Ultrasound of the pelvis is performed using both transabdominal and transvaginal transducers along with Doppler. Transvaginal imaging is performed due to inadequate visualization transabdominally. FINDINGS: Uterus: The uterus is anteverted and measures 6.9 x 4.1 x 5.4 cm. The double wall endometrial thickness is 5 mm. The uterus is smooth in contour and has normal myometrial echogenicity with the exception of a single echogenic focus at the fundus measuring under 2 mm in size which may be a tiny area of calcification or vascular artifact as no calcium was seen on the 12/06/2023 CT scan. No visible fibroid. Adnexa: Both ovaries are visualized. There is normal color flow to the adnexa. There is no ovarian torsion. There is no pelvic ascites or fluid collection. Right ovary measures 2.4 x 1.1 x 2.3 cm for a volume of 3.2 mL. Left ovary measures 3.2 x 1.8 x 2.9 cm for a volume of 8.3 mL which includes multiple benign simple cysts the largest measuring 0.9 cm in greatest dimension. US/US pelvic and transvaginal IMPRESSION: Benign left ovarian cysts. No follow-up is needed.
--- NOTE | ~2023-12-30 | US_ITS ---
EXAMINATION: US THYROID CLINICAL INFORMATION: Nontoxic single thyroid nodule. COMPARISON: Thyroid ultrasound 06/08/2018, report only. TECHNIQUE: Linear transducer grayscale and color Doppler examination with attention to the region of the thyroid. FINDINGS: SIZE: Measurements of the thyroid lobes and nodules are given in sagittal, anteroposterior and transverse dimensions respectively. Right Thyroid Lobe: 5.16 x 2.15 x 1.32 cm, volume 7.68 mL. Parenchyma: The gland echotexture is homogeneous. Thyroid vascularity is normal. Left Thyroid Lobe: 5.80 x 2.27 x 1.87 cm, volume 12.9 mL. Parenchyma: The gland echotexture is homogeneous. Thyroid vascularity is normal. Isthmus: 0.29 cm in maximum AP dimension. Estimated total number of nodules greater than or equal to 1 cm: 2. 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 Location: Right inferior. Size: 0.77 x 0.36 x 0.70 cm, volume 0.10 mL. Nodule characteristics: Composition: Spongiform (0). Echogenicity: Anechoic (0). Shape: Not taller than wide (0). Margins: Smooth (0). Echogenic Foci: None (0). ACR TI-RADS total points: 0 ACR TI-RADS category: 1 2. Location: Right inferior. Size: 1.4 x 1.3 x 1.35 cm, volume 1.3 mL. Nodule characteristics: Composition: Cystic(0). ACR TI-RADS total points: 0 ACR TI-RADS category: 1 3. Location: Left inferior. Size: 3.8 x 2.2 x 2.8 cm, volume 12.5 mL. In 2018 this measured 2.6 x 1.6 x 2.2 cm and is significantly larger. Nodule characteristics: Composition: Solid/almost completely solid (2). Echogenicity: Hypoechoic (2). Shape: Not taller than wide (0). Margins: Smooth (0). Echogenic Foci: Macrocalcifications (1). ACR TI-RADS total points: 5 ACR TI-RADS category: 4 NODES: No lymphadenopathy is seen in the tissue surrounding the thyroid gland. US/US thyroid IMPRESSION: 3.8 cm left inferior TI-RADS class 4 nodule. Biopsy is recommended if this has not already been performed, however, I believe that biopsy may have been performed in the past. Please correlate with the patient's medical records. ACR TI-RADS RECOMMENDATION REFERENCE: Ultrasound-guided fine-needle aspiration, followup ultrasound, no further follow up. * TR1 (0 point) and TR2 (2 points): No FNA or follow up. * TR3 (3 points): FNA if more than or equal to 2.5 cm in maximum dimension, followup ultrasound in 1, 3 and 5 years if 1.5 to 2.4 cm in maximum dimension. * TR4 (4-6 points): FNA if more than or equal to 1.5 cm in maximum dimension, followup ultrasound in 1, 2, 3 and 5 years if 1 to 1.4 cm in maximum dimension. * TR5 (more than or equal to 7 points): FNA if more than or equal to 1 cm in maximum dimension, followup ultrasound every year for 5 years if 0.5 to 0.9 cm in maximum dimension. * TR3, TR4 or TR5 nodules that are below the size threshold for followup receive no follow up.
== END 2023-12-30 14:27 | disposition home or self-care (01) ==
LOC: HO.HMGCX 14:26
PROVIDERS: PCP Internal Medicine; Visit Provider Internal Medicine
DX: N83.209 Unspecified ovarian cyst, unspecified side (principal); E04.1 Nontoxic single thyroid nodule; E78.5 Hyperlipidemia, unspecified
CPT/HCPCS: 76536; 76830; 76856

== ENCOUNTER 2024-01-12 16:47 | Outpatient (REF) | payer BC, SELFPAY ==
--- NOTE | ~2024-01-12 | MR_ITS ---
EXAMINATION: MR ABDOMEN WITHOUT AND WITH CONTRAST CLINICAL INFORMATION: Prior abnormal imaging. COMPARISON: CT abdomen/pelvis 12/06/2023 TECHNIQUE: MR abdomen was performed without and with use of 9 mL intravenous Gadavist gadolinium contrast. Postcontrast images are performed in multiphase dynamic sequences. Imaging was performed in 3 planes. MRCP was also performed. FINDINGS: LUNG BASES: The visualized lung bases are unremarkable. LIVER, GALLBLADDER, AND BILIARY TREE: Hepatic steatosis. No suspicious hepatic lesion or biliary ductal dilatation is present. The gallbladder is unremarkable with no evidence of gallbladder wall thickening, or obvious pericholecystic inflammatory changes. PANCREAS: Normal contour. Homogeneous enhancement. No ductal dilatation. No peripancreatic stranding. MRCP images are of limited diagnostic utility. SPLEEN: Not enlarged. Cystic nonenhancing lesion at the splenic hilum measures 2.2 x 1.5 x 1.6 cm. ADRENAL GLANDS: No adrenal mass. KIDNEYS AND URETERS: The kidneys are normal in size, shape, and enhance symmetrically. No hydronephrosis. No perinephric stranding. GASTROINTESTINAL TRACT: No bowel obstruction. No ascites or fluid collection. ABDOMINAL WALL: No significant hernia is appreciated. LYMPH NODES: No bulky lymphadenopathy. VASCULAR: Normal caliber abdominal aorta. MR/MR abdomen wo/w con IMPRESSION: Hepatic steatosis. Nonenhancing cystic lesion at the splenic hilum measuring 2.2 x 1.5 x 1.6 cm. This may be a sequela of prior inflammation or infection.
[2024-01-12] MEDS: gadobutroL 10 ML VIAL IVPUSH (17:50)
== END 2024-01-12 16:48 | disposition home or self-care (01) ==
LOC: HO.MRI 16:47
PROVIDERS: PCP Internal Medicine; Visit Provider Internal Medicine
DX: K86.89 Other specified diseases of pancreas (principal)
CPT/HCPCS: 74183; A9585

== ENCOUNTER 2024-06-08 13:01 | Outpatient (AMB) | payer BC, SELFPAY ==
[2024-06-08 13:13] VITALS: BP 120/74; PULSE 80; O2SAT 100; BMI 28.7
--- NOTE | 2024-06-08 13:13 | A.OFFPC_ITS ---
Vital Signs 06/08/24 13:13 Height 5 ft 4 in Weight 167 lb BMI 28.7 BP 120/74 Blood Pressure Location Rt brachial Position Sitting Pulse 80 Pulse Source Pulse Oximeter Pulse Oximetry (%) 100 Oxygen Delivery Method Room Air Intake Visit Reasons: pneumonia Intake Note: Pt is here today for a follow up after having pneumonia. Pt states that she finished antibiotics. Pt would like referral for PT as she has been having pain in her shoulders. Pt also states that she has been having R hand numbness and tingiling. Allergies No Known Allergies Allergy (Verified 06/08/24 13:18) Medication List - Last Reconciled 06/08/24 by Alaina Kennedy MD cholecalciferol (vitamin D3) 25 mcg PO DAILY ibuprofen 200 mg PO Q6H PRN Tobacco use date assessed: 06/08/24 Dental Screening Dental Screen Date: 06/08/24 Did you have a dental visit in the last 12 months?: Yes Did you have a dental problem in the last 6 months where you did not have access to dental care?: No Was dental information given to patient?: Patient has dentist HPI pneumonia HPI Details Pt is for f/u pneumonia dxd in Urgent Care 3 weeks ago. Patient took Augmentin and Z-Jorge and reports feeling well. Patient complains of chronic right shoulder, pain worse when reaching overhead or behind the back. She had an episode of 4th and 5th finger tingling sensation after working in the garden which resolved completely. She denies any weakness in the hand elevator supervisor. 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 [facility] Medical History GERD (gastroesophageal reflux disease) Thyroid nodule Normal Pap smear Annual physical exam Surgical History No pertinent past surgical history Family History Father HTN (hypertension) Mother HTN (hypertension) Brother Colon polyp Social History Housing: House Patient Tobacco Use Status: Never used Tobacco e-Cigarette/Vaping Use: Never Used service: No Current occupational status: employed Cognitive needs: No Hearing needs: No Vision needs: No Questionnaire PHQ-9 Over the last 2 weeks, how often have you been bothered by any of the following problems? 1. Little interest or pleasure in doing things: not at all 2. Feeling down, depressed, or hopeless: not at all 3. Trouble falling or staying asleep, or sleeping too much: not at all 4. Feeling tired or having little energy: not at all 5. Poor appetite or overeating: not at all 6. Feeling bad about yourself - or that you are a failure or have let yourself or your family down: not at all 7. Trouble concentrating on things, such as reading the newspaper or watching television: not at all 8. Moving or speaking so slowly that other people could have noticed. Or the opposite - being so fidgety or restless that you have been moving around a lot more than usual: not at all 9. Thoughts that you would be better off or of hurting yourself in some way: not at all Total score: 0 Depression Screening Interpretation: Negative Depression Screening Done: Yes 04300 - PHQ-9 Billing: Yes Source: Developed by Drs. Moy Chacon, Debi Shahid, Antonino Rosas and colleagues, with an educational pollo from [employer]. Thrive Questionnaire Date Thrive assessed: 10/05/23 I am a: Patient What is your living situation today?: I have a steady place to live Within the past 12 months, did the food you bought not last and you didn't have the money to get more?: Never true Within the past 12 months, did you worry whether your food would run out before you got money to buy more?: Never true Do you have trouble paying for medicines?: No Do you have trouble getting transportation to medical appointments?: No Do you have trouble paying your heating and electricity bill?: No Do you have trouble taking care of your child, family member or friend?: No Do you have trouble with day-to-day activities such as bathing, preparing meals, shopping, managing finances, etc.?: No Are you currently unemployed and looking for a job?: No Are you interested in more education?: Yes Please select the resources that you would like help with: None Currently or been in a relationship where the following occur: No concerns reported THRIVE Score: 0 AUDIT C Alcohol Use Questionnaire (AUDIT-C) 1. How often do you have a drink containing alcohol?: Monthly or less 2. How many drinks containing alcohol do you have on a typical day when you are drinking?: 1 or 2 3. How often do you have six or more drinks on one occasion?: Never Total Score: 1 LINA-7 AMB Questionnaire LINA-7 Date LINA - 7 assessed: 06/08/24 Feeling nervous, anxious, or on edge: 0 = Not at all Not being able to stop or control worryin = Not at all Worrying too much about different things: 1 = Several days Trouble relaxin = Not at all Being so restless that it is hard to sit still: 0 = Not at all Becoming easily annoyed or irritable: 0 = Not at all Feeling afraid as if something awful might happen: 1 = Several days Total LINA-7 score (0-4 normal; 5-9 mild; 10-14 moderate; 15-21 severe): 2 Source: Developed by Drs. Moy Chacon, Debi Shahid, Antonino Rosas and colleagues, with an educational pollo from [employer]. Review of Systems Const All systems reviewed & are unremarkable except as noted in HPI and below Eyes Reports no additional complaints ENT Reports no additional complaints Card Reports no additional complaints Resp Reports no additional complaints GI Reports no additional complaints Reports no additional complaints Physical exam (Primary Care) Vital Signs: Last Vital Signs Pulse 80 06/08/24 13:13 BP 120/74 06/08/24 13:13 Pulse Ox 100 06/08/24 13:13 Oxygen Delivery Method Room Air 06/08/24 13:13 BMI result Body Mass Index 28.7 Tobacco/Smoking Status: Tobacco use Status Tobacco use date assessed 06/08/24 06/08/24 13:21 Patient Tobacco Use Status Never used Tobacco 06/08/24 13:21 e-Cigarette/Vaping Use Never Used 06/08/24 13:14 PHQ-9: PHQ-9 Score PHQ-9: Total score 0 06/08/24 13:21 Depression Screening Interpretation: Negative Thrive Assessment: Date of Thrive Assessment Date Thrive assessed 10/05/23 06/08/24 13:14 Currently or been in a relationship where the following occur: No concerns reported Const General: no acute distress HENMT Head: Yes normal to inspection Face and sinus: Yes normal facial exam Neck Neck: Yes supple Resp Effort & Inspection: normal respiratory effort Auscultation: clear to auscultation bilaterally Cardio Rhythm: regular rhythm Heart sounds: S1 normal heart sound present and S2 normal heart sound present GI Inspection: Yes normal to inspection Extrem Other: There is a slight decreased range of motion right shoulder no weakness in upper extremities deep tendon reflexes 2+ bilaterally Assessment and Plan Assessment & Plan (1) Pneumonia: Code(s): J18.9 - Pneumonia, unspecified organism Plan: Repeat chest x-ray (2) Shoulder pain, right: Code(s): M25.511 - Pain in right shoulder Plan: Patient will schedule an appointment with physical therapy Orders: Orders XR chest 2V Today J18.9 - Pneumonia, unspecified organism Coding Level of Care Code Est Pt Level 3 (12211) Diagnoses Pneumonia J18.9 Shoulder pain, right M25.511
== END 2024-06-08 14:56 | disposition home or self-care (01) ==
PROVIDERS: PCP Internal Medicine; Visit Provider Internal Medicine
DX: J18.9 Pneumonia, unspecified organism (principal); M25.511 Pain in right shoulder
CPT/HCPCS: 99213

== ENCOUNTER 2024-06-08 13:54 | Outpatient (REF) | payer BC, SELFPAY ==
--- NOTE | ~2024-06-08 | XR_ITS ---
EXAMINATION: XR CHEST 2 VIEWS CLINICAL INFORMATION: Pneumonia. COMPARISON: None. TECHNIQUE: Frontal and lateral views of the chest were obtained. FINDINGS: The heart, great vessels, pulmonary vasculature and mediastinum are normal. The lungs show no focal infiltrate, effusion or pneumothorax. There is biapical pleural thickening. There is no acute osseous abnormality. There is multi-level thoracic spondylosis. XR/XR chest 2V IMPRESSION: No active cardiopulmonary disease. Electronically signed by: Del Hickey MD 07/23/2024 11:43 AM EDT
== END 2024-06-08 13:55 | disposition home or self-care (01) ==
LOC: HO.HMGCX 13:54
PROVIDERS: PCP Internal Medicine; Visit Provider Internal Medicine
DX: J18.9 Pneumonia, unspecified organism (principal)
CPT/HCPCS: 71046

== ENCOUNTER 2024-07-24 16:00 | Outpatient (AMB) | payer BC, SELFPAY ==
--- NOTE | 2024-07-24 16:01 | MHC.OFFVIS ---
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 Kennedy. She has a past medical history of GERD and a thyroid nodule. She presents to the office today for follow-up of her microscopic hematuria. Of note, patient was seen approximately 6 months ago at which time she underwent CT urogram and urine cytology for microscopic hematuria. CT 12/17 noted no hydronephrosis or renal calculi noted. Discussed continuing to follow up with customer service representative teller regarding adnexal 2.4 cm left cyst that is recommending pelvic ultrasound for further assessment evaluation. Discussed following up with PCP regarding 2.3 cm cystic structure arising from spleen with calcifications. She reports noting microscopic hematuria was found in 2019 however then subsided without any intervention. Discussed at length potential causes of microscopic hematuria. Cytology 12/17 Negative for high-grade urothelial carcinoma. She denies any bothersome urinary issues or concerns. She denies urinary urgency, urinary frequency, incontinence, nocturia, hematuria, dysuria, foul smelling urine, changes to urinary stream, flank pain, fever, and or chills. She is happy with her current voiding parameters. In office urinalysis results reviewed with the patient today. Discussed further workup of microscopic hematuria to include in office cystoscopy. I discussed reasons for blood in the urine may include but are not limited to kidney stones, cancer in the urinary tract, kidney stone disease or inflammatory conditions of the urinary tract. I have discussed workup to include cystoscopy evaluation versus surveillance monitoring. She also reports she continues to menstruate and has recently finished her menses. She has no history of nicotine dependence and or known workplace chemical exposure. She otherwise offers no other issues or concerns at this time. [facility] Medical History GERD (gastroesophageal reflux disease) Thyroid nodule Normal Pap smear Annual physical exam Surgical History No pertinent past surgical history Family History Father HTN (hypertension) Mother HTN (hypertension) Brother Colon polyp Social History Housing: House Patient Tobacco Use Status: Never used Tobacco e-Cigarette/Vaping Use: Never Used service: No Current occupational status: employed Cognitive needs: No Hearing needs: No Vision needs: No Review of Systems Const All systems reviewed & are unremarkable except as noted in HPI and below Physical Exam Const General: cooperative, healthy appearing, comfortable, no acute distress, well developed, alert and awake Orientation/consciousness: patient oriented x3 Limitations: no limitations HEENT Head: Yes normal to inspection, Yes normocephalic and Yes atraumatic Ears: hearing grossly normal bilaterally Eyes General: appearance normal, both eyes and all related structures Neck Neck: Yes normal visual inspection and Yes trachea midline Chest Chest palpation & inspection: normal inspection of the chest Resp Effort & Inspection: normal respiratory effort and able to speak in complete sentences Cardio Rate: regular rate GI Inspection: Yes normal to inspection General: Yes no CVA tenderness Back/Spine/Pelvis Back: no CVA tenderness Skin General skin exam: no rashes or lesions noted Neuro General: patient oriented x3 Extrem General: Yes normal to inspection Psych Appearance: grossly normal and well kempt Mental Status: mental status grossly normal Speech and movement: Normal speech and movement present and Clear speech present Affect: normal affect Attitude: cooperative Thought process: Normal thought process present Thought content: Normal thought content present Insight: Fair insight present (Psych) Judgement: Fair judgement present (Psych) Results AMB Urinalysis, Automated UA Leukoctes 0 Ganga/uL Last Edit by [employer] on 07/24/24 16:27 UA Nitrite Last Edit by [employer] on 07/24/24 16:27 UA Urobilinogen 0.2 mg/dL Last Edit by Malauzai [employer]estefany [employer] on 07/24/24 16:27 UA Protein 0 mg/dL Last Edit by Malauzai Softwareestefany He[employer] on 07/24/24 16:27 UA pH 6.0 Last Edit by [employer] Monet[employer] on 07/24/24 16:27 UA Blood 200 Kenneth/uL Last Edit by Corinne Mendoza on 07/24/24 16:27 UA Specific [place] 1.030 Last Edit by Corinne Mendoza on 07/24/24 16:27 UA Ketone Negative Last Edit by Corinne Mendoza on 07/24/24 16:27 UA Bilirubin 0 mg/dL Last Edit by Corinne Mendoza on 07/24/24 16:27 UA Glucose 0 mg/dL Last Edit by Corinne Mendoza on 07/24/24 16:27 Results Reviewed Results Reviewed: Laboratory Last Values Urine pH (Auto) 6.0 07/24/24 16:25 Specific [place] (Auto) 1.030 07/24/24 16:25 Urine Protein (Auto) 0 mg/dL 07/24/24 16:25 Glucose (UA)(Auto) 0 mg/dL 07/24/24 16:25 Urine Ketones (Auto) Negative 07/24/24 16:25 Urine Blood (Auto) 200 Kenneth/uL 07/24/24 16:25 Urine Bilirubin (Auto) 0 mg/dL 07/24/24 16:25 Urine Urobilinogen (Auto) 0.2 mg/dL 07/24/24 16:25 Leukocyte Esterase (Auto) 0 Ganga/uL 07/24/24 16:25 Assessment & Plan Assessment & Plan (1) Microscopic hematuria: Comment: Renal ultrasound negative 08/17 Code(s): R31.29 - Other microscopic hematuria Category: Medical Plan In office urinalysis results reviewed with the patient today; as noted above; will send for urine cytology. We discussed at length potential causes of microscopic hematuria as well as further workup to include in office cystoscopy; risks and benefits of these interventions were discussed. She denies any bothersome urinary issues or concerns. She reports be happy with current voiding parameters. Previous urine cytology results reviewed with the patient today; as noted above. Will continue with surveillance monitoring at this time per patient request. Follow-up in 6 months; or sooner with any issues, concerns, and or questions. Orders: Orders AMB Urinalysis Automated Today Z13.9 - Encounter for screening, unspecified Urine Cytology Today R31.29 - Other microscopic hematuria Patient Instructions: The patient had an opportunity to ask questions regarding the treatment plan. All questions were answered. Physical exam, labs, and imaging were discussed and reviewed in detail. As well as risks, benefits, and discussion of treatment choices. No major barriers to understanding were identified. The patient expressed understanding and agreement with the above treatment plan. The patient was made aware they should contact our office by phone for worsening of their current condition, the appearance of new symptoms, or with any questions or concerns. Compliance is encouraged with any medications and follow up testing that is ordered. It is a privilege to be allowed the opportunity to participate in? your urological care.? Again, if you have any questions or concerns If you have any questions or concerns please do not hesitate to contact me. The office is [phone]. This note is constructed using voice recognition software. While every effort has been made to ensure accuracy scouring machine tender errors may have been included. Yours sincerely, TYRON Wayne Coding Level of Care Code Est Pt Level 3 (05373) Diagnoses Microscopic hematuria R31.29
== END 2024-07-24 16:36 | disposition home or self-care (01) ==
LOC: HO.HUSH 16:01
PROVIDERS: PCP Internal Medicine; Visit Provider Nurse Practitioner Family
DX: Z13.9 Encounter for screening, unspecified (principal); R31.29 Other microscopic hematuria
CPT/HCPCS: 99213

== ENCOUNTER 2024-07-24 16:00 | Outpatient (REF) | payer BC, SELFPAY ==
[2024-07-24 17:15] LABS: Urine Cytology See Pathology rpt
== END 2024-07-24 16:01 | disposition home or self-care (01) ==
LOC: HO.LNP 16:00
PROVIDERS: PCP Internal Medicine; Visit Provider Nurse Practitioner Family
DX: R31.29 Other microscopic hematuria (principal)
CPT/HCPCS: 81003; 88112

== ENCOUNTER 2024-10-18 08:29 | Outpatient (REF) | payer BC, SELFPAY ==
[2024-10-18 10:13] LABS: MANUAL DIFF FLAG NO
[2024-10-18 10:25] LABS: Basophils Absolute Auto 0.1 X10*3/uL (0.0-0.2); Basophils Percent Auto 1.1 % (0-2); Eosinophils Absolute Auto 0.3 X10*3/uL (0.0-0.4); Eosinophils Percent Auto 4.5 % (0-4); Hematocrit 39.7 % (37.0-47.0); Hemoglobin 13.1 g/dl (12.0-16.0); Imm Gran Abs Auto 0.01 X10*3/uL (0.00-0.03); Imm Gran Pct Auto 0.1 % (0.0-0.4); Lymphocytes Absolute Auto 2.6 X10*3/uL (1.2-4.9); Lymphocytes Percent Auto 35.8 % (20-40); Mean Corpuscular Hemoglobin 28.4 pg (27.0-33.0); Mean Corpuscular Volume 86.1 fL (80.0-98.0); Mean Platelet Volume 11.9 fL (9.4-12.3); Monocytes Absolute Auto 0.4 X10*3/uL (0.1-1.2); Monocytes Percent Auto 5.9 % (2-11); Neutrophils Absolute Auto 3.8 x10*3/uL (2.0-8.3); Neutrophils Percent Auto 52.6 % (45-73); Platelet Count 241 X10*3/uL (160-400); Red Blood Count 4.61 X10*6/uL (4.20-5.50); Red Cell Distribution Width 12.9 % (11.0-16.0); White Blood Count 7.2 X10*3/uL (4.8-10.8)
[2024-10-18 10:47] LABS: Rheumatoid Factor < 13.0 IU/mL (<15.0)
[2024-10-18 10:57] LABS: Erythrocyte Sedimentation Rate 8 MM/HR (0-20)
[2024-10-18 11:05] LABS: Appearance Urine Clear; Color Urine Yellow; Glucose Urine UA Negative (Negative); Leukocyte Esterase Urine Negative (Negative); Nitrite Urine Negative (Negative); Specific Gravity - Urine 1.025 (1.005-1.025); UMIC TRIGGER UA YES; Urine Blood Large (3+) (Negative); Urine Ketones Negative (Negative); Urine Protein Negative (Neg-Trace)
[2024-10-18 11:10] LABS: Alanine Aminotransferase 23 U/L (0-31); Alkaline Phosphatase 70 U/L (39-117); Anion Gap 9 (12-20); Aspartate Amino Transferase 19 U/L (5-31); Bilirubin Total 0.5 mg/dL (0.0-1.0); Blood Urea Nitrogen 13 mg/dL (9-16); Carbon Dioxide 26 mmol/L (22-29); Chloride 109 mmol/L (96-108); Cholesterol 205 mg/dL (<200); Estimated Glomerular Filt Rate > 60; Glucose Fasting 89 mg/dL (60-99); HDL Cholesterol 44 mg/dL (>40); LDL Cholesterol Calculated 132 mg/dL (<100); Potassium 3.7 mmol/L (3.3-5.1); Sodium 140 mmol/L (135-145); TSH reflex Free T4 1.17 uIU/mL (0.32-4.0); Total Protein 7.4 g/dL (6.5-8.0); Triglycerides 148 mg/dL (<150); Vitamin D 25-OH Total 45.1 ng/mL (>30)
[2024-10-18 11:12] LABS: Bacteria Urine None Seen (None Seen); Hyaline Casts Urine 0-2 /LPF (0-2); RBC Urine >20 /HPF (0-2); WBC Urine 0-5 /HPF (0-5)
[2024-10-18 11:21] LABS: Folate 11.5 ng/mL (> or = 4.0); Vitamin B12 406 pg/mL (200-900)
[2024-10-22 14:39] LABS: Cyclic Citrullinated Peptide <16 UNITS
== END 2024-10-18 08:30 | disposition home or self-care (01) ==
LOC: HO.HMGCLDS 08:29
PROVIDERS: PCP Internal Medicine; Visit Provider Internal Medicine
DX: Z00.00 Encounter for general adult medical examination without abnormal findings (principal); E78.5 Hyperlipidemia, unspecified; E55.9 Vitamin D deficiency, unspecified; E04.1 Nontoxic single thyroid nodule
CPT/HCPCS: 36415; 80053; 80061; 81001; 82306; 82607; 82746; 84443; 85025; 85652; 86200; 86431; 96127

== ENCOUNTER 2024-10-18 08:29 | Outpatient (AMB) | payer BC, SELFPAY ==
[2024-10-18 08:32] VITALS: BP 112/76; PULSE 90; TEMP 37; O2SAT 99; BMI 28.7
--- NOTE | 2024-10-18 08:32 | A.OFFPC_ITS ---
Vital Signs 10/18/24 08:32 Height 5 ft 4 in Weight 167 lb BMI 28.7 BP 112/76 Blood Pressure Location Lt brachial Position Sitting Pulse 90 Pulse Source Pulse Oximeter Temp 98.6 F Temp Source Oral Pulse Oximetry (%) 99 Oxygen Delivery Method Room Air Intake Visit Reasons: Annual PE Intake Note: Pt is here today for PE. Allergies No Known Allergies Allergy (Verified 10/18/24 08:43) Medication List - Last Reconciled 10/18/24 by Alaina Kennedy MD cholecalciferol (vitamin D3) 25 mcg PO DAILY ibuprofen 200 mg PO Q6H PRN Tobacco use date assessed: 10/18/24 Dental Screening Dental Screen Date: 10/18/24 Did you have a dental visit in the last 12 months?: Yes Did you have a dental problem in the last 6 months where you did not have access to dental care?: No Was dental information given to patient?: Patient has dentist HPI Annual PE HPI Details Patient presents for physical. She complains of chronic bilateral shoulder discomfort and stiffness. She completed physical therapy with significant improvement but has not been exercising regularly. [facility] Medical History (Updated 10/18/24 @ 09:15 by Alaina Kennedy MD) GERD (gastroesophageal reflux disease) Thyroid nodule Normal Pap smear Annual physical exam Surgical History (Updated 10/18/24 @ 09:16 by Alaina Kennedy MD) No pertinent past surgical history Family History Father HTN (hypertension) Mother HTN (hypertension) Brother Colon polyp Social History Housing: House Patient Tobacco Use Status: Never used Tobacco e-Cigarette/Vaping Use: Never Used service: No Current occupational status: employed Cognitive needs: No Hearing needs: No Vision needs: No Questionnaire PHQ-9 Over the last 2 weeks, how often have you been bothered by any of the following problems? 1. Little interest or pleasure in doing things: not at all 2. Feeling down, depressed, or hopeless: not at all 3. Trouble falling or staying asleep, or sleeping too much: not at all 4. Feeling tired or having little energy: not at all 5. Poor appetite or overeating: not at all 6. Feeling bad about yourself - or that you are a failure or have let yourself or your family down: not at all 7. Trouble concentrating on things, such as reading the newspaper or watching television: not at all 8. Moving or speaking so slowly that other people could have noticed. Or the opposite - being so fidgety or restless that you have been moving around a lot more than usual: not at all 9. Thoughts that you would be better off or of hurting yourself in some way: not at all Total score: 0 Depression Screening Interpretation: Negative Depression Screening Done: Yes 89140 - PHQ-9 Billing: Yes Source: Developed by Drs. Moy Chacon, Debi Shahid, Antonino Rosas and colleagues, with an educational pollo from [employer]. Thrive Questionnaire Date Thrive assessed: 10/16/24 I am a: Patient What is your living situation today?: I have a steady place to live Within the past 12 months, did the food you bought not last and you didn't have the money to get more?: Never true Within the past 12 months, did you worry whether your food would run out before you got money to buy more?: Never true Do you have trouble paying for medicines?: No Do you have trouble getting transportation to medical appointments?: No Do you have trouble paying your heating and electricity bill?: No Do you have trouble taking care of your child, family member or friend?: No Do you have trouble with day-to-day activities such as bathing, preparing meals, shopping, managing finances, etc.?: No Are you currently unemployed and looking for a job?: No Are you interested in more education?: Yes Please select the resources that you would like help with: None Currently or been in a relationship where the following occur: No concerns reported THRIVE Score: 0 AUDIT C Alcohol Use Questionnaire (AUDIT-C) 1. How often do you have a drink containing alcohol?: Monthly or less 2. How many drinks containing alcohol do you have on a typical day when you are drinking?: 1 or 2 3. How often do you have six or more drinks on one occasion?: Never Total Score: 1 LINA-7 AMB Questionnaire LINA-7 Date LINA - 7 assessed: 10/18/24 Feeling nervous, anxious, or on edge: 0 = Not at all Not being able to stop or control worryin = Not at all Worrying too much about different things: 1 = Several days Trouble relaxin = Not at all Being so restless that it is hard to sit still: 0 = Not at all Becoming easily annoyed or irritable: 0 = Not at all Feeling afraid as if something awful might happen: 0 = Not at all Total LINA-7 score (0-4 normal; 5-9 mild; 10-14 moderate; 15-21 severe): 1 Source: Developed by Drs. Moy Chacon, Debi Shahid, Antonino Rosas and colleagues, with an educational pollo from [employer]. LINA-7 Assessment Billing LINA-7 Assessment Tool: LINA-7 Assessment 08693 Review of Systems Const All systems reviewed & are unremarkable except as noted in HPI and below Eyes Reports no additional complaints ENT Reports no additional complaints Card Reports no additional complaints Resp Reports no additional complaints GI Reports no additional complaints Reports no additional complaints Physical exam (Primary Care) Vital Signs: Last Vital Signs Temp 98.6 F 10/18/24 08:32 Pulse 90 10/18/24 08:32 BP 112/76 10/18/24 08:32 Pulse Ox 99 10/18/24 08:32 Oxygen Delivery Method Room Air 10/18/24 08:32 BMI result Body Mass Index 28.7 Tobacco/Smoking Status: Tobacco use Status Tobacco use date assessed 10/18/24 10/18/24 08:37 Patient Tobacco Use Status Never used Tobacco 10/18/24 08:37 e-Cigarette/Vaping Use Never Used 10/18/24 08:32 PHQ-9: PHQ-9 Score PHQ-9: Total score 0 10/18/24 08:37 Depression Screening Interpretation: Negative Thrive Assessment: Date of Thrive Assessment Date Thrive assessed 10/16/24 10/18/24 08:32 Currently or been in a relationship where the following occur: No concerns reported Const General: no acute distress HENMT Head: Yes normal to inspection Ears: hearing grossly normal bilaterally Face and sinus: Yes normal facial exam Eyes General: appearance normal, both eyes and all related structures Resp Effort & Inspection: normal respiratory effort Auscultation: clear to auscultation bilaterally Cardio Rhythm: regular rhythm Heart sounds: S1 normal heart sound present and S2 normal heart sound present GI Inspection: Yes normal to inspection Palpation (GI): Soft to palpation Percussion: Yes normal to percussion Auscultation: normal bowel sounds Extrem Other: Both shoulders with full range of motion no joint or muscle tenderness Coding Level of Care Code Est Pt Prev Care 40-64y(57878) Diagnoses Hyperlipidemia E78.5 Annual physical exam Z00.00 Vitamin D deficiency E55.9 Thyroid nodule E04.1 Normal Pap smear Z12.4 Hx of colonoscopy Z98.890 Additional Codes LINA-7 Assessment Billing - LINA-7 Assessment Tool: LINA-7 Assessment 48086 ([id number]) PHQ-9 - 39006 - PHQ-9 Billing: Yes ([id number]) Assessment & Plan Assessment & Plan (1) Hyperlipidemia: Code(s): E78.5 - Hyperlipidemia, unspecified Category: Medical Plan: Low-cholesterol diet increase physical activity discussed with the patient check blood work today (2) Annual physical exam: Code(s): Z00.00 - Encounter for general adult medical examination without abnormal findings Category: Medical Plan: Well-balanced diet regular physical activity discussed with the patient she is up-to-date with the mammogram Pap smear by inspector fuel hose and had negative colonoscopy in 2022 (3) Vitamin D deficiency: Code(s): E55.9 - Vitamin D deficiency, unspecified Category: Medical Plan: Check vitamin-D (4) Thyroid nodule: Comment: f/u endo Dr. Lane, 2 nodules bx negative 2013, thyroid US 12/2023 3.8x 2.2x2.8 cm L inf, and 1.4x1.3 cm R inf nodules Code(s): E04.1 - Nontoxic single thyroid nodule Category: Medical Plan: Repeat thyroid ultrasound in December (5) Normal Pap smear: Comment: follow-up with inspector fuel hose Category: Medical Plan: Follow-up with inspector fuel hose (6) Hx of colonoscopy: Comment: normal 2022, FHx of colon polyps brother Code(s): Z98.890 - Other specified postprocedural states Category: Surgical Plan: Repeat colonoscopy in 5 years Orders: Orders Complete Blood Count Auto Diff Today E78.5 - Hyperlipidemia, unspecified, Z00.00 - Encounter for general adult medical examination without abnormal findings Lipid Panel Today E78.5 - Hyperlipidemia, unspecified, Z00.00 - Encounter for general adult medical examination without abnormal findings Vitamin B12 and Folate Today E78.5 - Hyperlipidemia, unspecified, Z00.00 - Encounter for general adult medical examination without abnormal findings Erythrocyte Sedimentation Rate Today E78.5 - Hyperlipidemia, unspecified, Z00.00 - Encounter for general adult medical examination without abnormal findings Rheumatoid Factor Today E78.5 - Hyperlipidemia, unspecified, Z00.00 - Encounter for general adult medical examination without abnormal findings UA w Microscopic Today E78.5 - Hyperlipidemia, unspecified, Z00.00 - Encounter for general adult medical examination without abnormal findings Complete Blood Count Auto Diff 1 Year Z00.00 - Encounter for general adult medical examination without abnormal findings Lipid Panel 1 Year Z00.00 - Encounter for general adult medical examination without abnormal findings Comprehensive [place]. Panel Fast 1 Year Z00.00 - Encounter for general adult medical examination without abnormal findings TSH reflex Free T4 1 Year Z00.00 - Encounter for general adult medical examination without abnormal findings Comprehensive [place]. Panel Fast Today E78.5 - Hyperlipidemia, unspecified, Z00.00 - Encounter for general adult medical examination without abnormal findings Cyclic Citrullinated Peptide Today E78.5 - Hyperlipidemia, unspecified, Z00.00 - Encounter for general adult medical examination without abnormal findings Vitamin D 25-OH Total Today E55.9 - Vitamin D deficiency, unspecified TSH reflex Free T4 Today E04.1 - Nontoxic single thyroid nodule US thyroid 01/08/25 E04.1 - Nontoxic single thyroid nodule
== END 2024-10-18 09:16 | disposition home or self-care (01) ==
PROVIDERS: PCP Internal Medicine; Visit Provider Internal Medicine
DX: E78.5 Hyperlipidemia, unspecified (principal); Z00.00 Encounter for general adult medical examination without abnormal findings; E55.9 Vitamin D deficiency, unspecified; E04.1 Nontoxic single thyroid nodule; Z12.4 Encounter for screening for malignant neoplasm of cervix; Z98.890 Other specified postprocedural states

== ENCOUNTER 2024-10-27 08:35 | Outpatient (REF) | payer BC, SELFPAY ==
[2024-10-27 11:15] LABS: Urine Cytology See Pathology rpt
[2024-10-27 11:33] LABS: Appearance Urine Clear; Color Urine Yellow; Glucose Urine UA Negative (Negative); Leukocyte Esterase Urine Negative (Negative); Nitrite Urine Negative (Negative); Specific Gravity - Urine 1.015 (1.005-1.025); UMIC TRIGGER UA YES; Urine Blood Large (3+) (Negative); Urine Ketones Negative (Negative); Urine Protein Negative (Neg-Trace)
[2024-10-27 11:44] LABS: Bacteria Urine None Seen (None Seen); Hyaline Casts Urine 0-2 /LPF (0-2); RBC Urine >20 /HPF (0-2); Squamous Epithelial Cell Urine 0-2 /HPF (0-2); WBC Urine 0-5 /HPF (0-5)
== END 2024-10-27 08:36 | disposition home or self-care (01) ==
LOC: HO.HMGCLDS 08:35
PROVIDERS: PCP Internal Medicine; Visit Provider Internal Medicine
DX: R31.29 Other microscopic hematuria (principal)
CPT/HCPCS: 81001; 87086; 88112

== ENCOUNTER 2025-01-24 15:54 | Outpatient (AMB) | payer BC, SELFPAY ==
--- NOTE | 2025-01-24 16:08 | A.OFFVIS_ITS ---
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 Kennedy. She has a past medical history of GERD and a thyroid nodule. She presents to the office today for follow-up of her microscopic hematuria. In discussion with the patient today she reports to be doing and feeling well. She denies having had any bothersome urinary issues or concerns since her last office visit here. Previous workup for microscopic hematuria has included CT 12/17 noted no hydronephrosis or renal calculi noted. She reports noting microscopic hematuria was found in 2018 however then subsided without any intervention. Discussed at length potential causes of microscopic hematuria. Cytology 08/17, 12/17, 07/19 and 11/20 Negative for high-grade urothelial carcinoma. She denies any bothersome urinary issues or concerns. She denies urinary urgency, urinary frequency, incontinence, nocturia, hematuria, dysuria, foul smelling urine, changes to urinary stream, flank pain, fever, and or chills. She is happy with her current voiding parameters. In office urinalysis results reviewed with the patient today. Discussed further workup of microscopic hematuria to include cystoscopy. I discussed reasons for blood in the urine may include but are not limited to kidney stones, cancer in the urinary tract, kidney stone disease or inflammatory conditions of the urinary tract. I have discussed workup to include cystoscopy evaluation versus surveillance monitoring. She has no history of nicotine dependence and or known workplace chemical exposure. She otherwise offers no other issues or concerns at this time. [facility] Medical History GERD (gastroesophageal reflux disease) Thyroid nodule Normal Pap smear Annual physical exam Surgical History No pertinent past surgical history Family History Father HTN (hypertension) Mother HTN (hypertension) Brother Colon polyp Social History Housing: House Patient Tobacco Use Status: Never used Tobacco e-Cigarette/Vaping Use: Never Used service: No Current occupational status: employed Cognitive needs: No Hearing needs: No Vision needs: No Review of Systems Const All systems reviewed & are unremarkable except as noted in HPI and below Physical Exam Const General: cooperative, healthy appearing, comfortable, no acute distress, well developed, alert and awake Orientation/consciousness: patient oriented x3 Limitations: no limitations HEENT Head: Yes normal to inspection, Yes normocephalic and Yes atraumatic Ears: hearing grossly normal bilaterally Eyes General: appearance normal, both eyes and all related structures Neck Neck: Yes normal visual inspection and Yes trachea midline Chest Chest palpation & inspection: normal inspection of the chest Resp Effort & Inspection: normal respiratory effort and able to speak in complete sentences Cardio Rate: regular rate GI Inspection: Yes normal to inspection General: Yes no CVA tenderness Back/Spine/Pelvis Back: no CVA tenderness Skin General skin exam: no rashes or lesions noted Neuro General: patient oriented x3 Extrem General: Yes normal to inspection Psych Appearance: grossly normal and well kempt Mental Status: mental status grossly normal Speech and movement: Normal speech and movement present and Clear speech present Affect: normal affect Attitude: cooperative Thought process: Normal thought process present Thought content: Normal thought content present Insight: Fair insight present (Psych) Judgement: Fair judgement present (Psych) Results AMB Urinalysis, Automated UA Leukoctes 0 Ganga/uL Last Edit by Raissa Guillory on 01/24/25 16:10 UA Nitrite Last Edit by Raissa Guillory on 01/24/25 16:10 UA Urobilinogen 0.2 mg/dL Last Edit by Raissa Guillory on 01/24/25 16:10 UA Protein 0 mg/dL Last Edit by Raissa Guillory on 01/24/25 16:10 UA pH 6.0 Last Edit by Raissa Guillory on 01/24/25 16:10 UA Blood 80 Kenneth/uL Last Edit by Raissa Guillory on 01/24/25 16:10 UA Specific [place] 1.010 Last Edit by Raissa Guillory on 01/24/25 16:10 UA Ketone Negative Last Edit by Raissa Guillory on 01/24/25 16:10 UA Bilirubin 0 mg/dL Last Edit by Raissa Guillory on 01/24/25 16:10 UA Glucose 0 mg/dL Last Edit by Raissa Guillory on 01/24/25 16:10 Results Reviewed Results Reviewed: Laboratory Last Values Urine pH (Auto) 6.0 01/24/25 15:56 Specific [place] (Auto) 1.010 01/24/25 15:56 Urine Protein (Auto) 0 mg/dL 01/24/25 15:56 Glucose (UA)(Auto) 0 mg/dL 01/24/25 15:56 Urine Ketones (Auto) Negative 01/24/25 15:56 Urine Blood (Auto) 80 Kenneth/uL 01/24/25 15:56 Urine Bilirubin (Auto) 0 mg/dL 01/24/25 15:56 Urine Urobilinogen (Auto) 0.2 mg/dL 01/24/25 15:56 Leukocyte Esterase (Auto) 0 Ganga/uL 01/24/25 15:56 Assessment & Plan Assessment & Plan (1) Microscopic hematuria: Comment: Renal ultrasound and urine cytology negative 08/17, follow-up with urology Code(s): R31.29 - Other microscopic hematuria Category: Medical Plan In office urinalysis results reviewed with the patient today; as noted above; will send for urine cytology. We reviewed previous urine cytology as well as imaging that has been ordered and performed previously. We reviewed potential causes of microscopic hematuria as well as further workup to include cystoscopy. She currently denies any bothersome urinary issues or concerns. She reports to be happy with current voiding parameters. Will continue with surveillance monitoring. Follow-up in 6 months; or sooner with any issues, concerns, and or questions. Orders: Orders AMB Urinalysis Automated Today Z13.9 - Encounter for screening, unspecified Urine Cytology Today R31.29 - Other microscopic hematuria Coding Level of Care Code Est Pt Level 3 (73954) Diagnoses Microscopic hematuria R31.29
== END 2025-01-24 16:23 | disposition home or self-care (01) ==
LOC: HO.HUSH 15:55
PROVIDERS: PCP Internal Medicine; Visit Provider Nurse Practitioner Family
DX: Z13.9 Encounter for screening, unspecified (principal); R31.29 Other microscopic hematuria
CPT/HCPCS: 99213

== ENCOUNTER 2025-01-24 15:54 | Outpatient (REF) | payer BC, SELFPAY ==
[2025-01-24 16:40] LABS: Urine Cytology See Pathology rpt
== END 2025-01-24 15:55 | disposition home or self-care (01) ==
LOC: HO.LNP 15:54
PROVIDERS: PCP Internal Medicine; Visit Provider Nurse Practitioner Family
DX: R31.29 Other microscopic hematuria (principal)
CPT/HCPCS: 81003; 88112

== ENCOUNTER 2025-09-24 10:31 | Outpatient (REF) | payer BC, SELFPAY ==
--- NOTE | ~2025-09-24 | US_ITS ---
EXAMINATION: US THYROID HISTORY: E04.1 - Nontoxic single thyroid nodule TECHNIQUE: Real-time grayscale ultrasound imaging was performed and images were reviewed. COMPARISON: Comparison is made with the prior examination dated 12/30/2023. FINDINGS: SIZE: The right thyroid lobe measures 4.8 x 2.0 x 1.3 cm. The left thyroid lobe measures 5.5 x 3.1 x 2.2 cm. The isthmus measures 4 mm. FLOW: Flow to the gland is normal. ECHOGENICITY: The echotexture of the gland is homogeneous. NODULES: Multiple nodules are again noted as described below: Nodule #: 1 Location: Midportion of the right thyroid lobe measuring 10 x 5 x 9 mm (previously 8 x 4 x 7 mm). Shape: Wider than tall (0 points) Margins: Smooth (0 points) Echotexture: n/a Composition: Spongiform (0 points) Calcifications: None (0 points) Total points: 0 TIRADS: TR1: Benign Nodule #: 2 Location: Lower pole of the right thyroid lobe measuring 7 x 5 x 6 mm (previously 1.4 x 6 1.3 x 1.4 cm). Shape: Wider than tall (0 points) Margins: Smooth (0 points) Echotexture: Hypoechoic (2 points) Composition: Solid (2 points) Calcifications: None (0 points) Total points: 4 TIRADS: TR4: Moderately suspicious. Nodule #: 3 Location: Lower pole of the left thyroid lobe measuring 3.2 x 2.4 x 2.8 cm (previously 3.8 x 2.2 x 2.8 cm). Shape: Wider than tall (0 points) Margins: Smooth (0 points) Echotexture: Hypoechoic (2 points) Composition: Mostly solid (2 points) Calcifications: Punctate calcifications (3 points) Total points: 7 TIRADS: TR5: Highly suspicious. US/US thyroid IMPRESSION: Highly suspicious nodule at the lower pole of the left thyroid lobe which now demonstrates punctate calcifications, which is a change from the prior study. Ultrasound-guided fine-needle aspiration is recommended. ACR TI-RADS Guidelines TR1 (0 points): Benign. No follow-up or biopsy required TR2 (2 points): Not Suspicious. No biopsy or follow up indicated TR3 (3 points): Mildly Suspicious. FNA if >= 2.5 cm, Follow if >= 1.5 cm TR4 (4-6 points): Moderately Suspicious. FNA if >= 1.5 cm, Follow if >= 1.0 cm TR5 (>=7 points): Highly Suspicious. FNA if >= 1.0 cm, Follow if >= 0.5 cm Electronically signed by: Moy Kilpatrick MD 09/24/2025 11:23 AM [facility] [place]
== END 2025-09-24 10:32 | disposition home or self-care (01) ==
LOC: HO.HMGCX 10:31
PROVIDERS: PCP Internal Medicine; Visit Provider Internal Medicine
DX: E04.1 Nontoxic single thyroid nodule (principal)
CPT/HCPCS: 76536

== ENCOUNTER → 2025-09-24 10:42 | Outpatient (BNV) | payer BC, SELFPAY | PROVIDERS: PCP Internal Medicine; Visit Provider Radiology Diagnostic Radiology | DX: E04.1 Nontoxic single thyroid nodule (principal) | CPT/HCPCS: 76536 ==